=== PATIENT | female | born 1985 | race Two or more races ===

== ENCOUNTER 2018-01-27 05:45 | Inpatient (IN) | payer OTHER, MEDICAID ==
[~2018-01-27] VITALS: Ht 160 cm; Wt 88.1 kg
[2018-01-27 05:55] VITALS: BP 120/69
[2018-01-27] MEDS ORDERED: OXYTOCIN 30U/ 0.9% NaCL 500ML 500 ML IV ONE ×2 (05:55→18:15)
[2018-01-27] MEDS ORDERED: D5%-LACTATED RINGERS 1,000 ML IV SCH (05:55)
[2018-01-27] MEDS ORDERED: LACTATED RINGERS 1,000 ML IV SCH (05:55)
[2018-01-27] MEDS ORDERED: OXYTOCIN 30U/ 0.9% NaCL 500ML 500 ML IV PRN (05:55)
[2018-01-27] MEDS ORDERED: MISOPROSTOL 25 MCG TABLET VG PRN (06:00)
[2018-01-27] MEDS ORDERED: FENTANYL PF 100 MCG/2ML IV PRN (06:00)
[2018-01-27] MEDS ORDERED: CALCIUM CARBONATE 500 MG TAB.CHEW PO PRN (06:00)
[2018-01-27] MEDS ORDERED: ONDANSETRON 2MG/ML, 2ML IVPush PRN (06:00)
[2018-01-27] MEDS ORDERED: TERBUTALINE 1 MG/ML, 1ML IVPush PRN (06:00)
[2018-01-27] MEDS ORDERED: MISOPROSTOL 200 MCG TABLET ONE (06:17)
[2018-01-27] MEDS ORDERED: OXYTOCIN 30U/ 0.9% NaCL 500ML 500 ML ONE ×3 (06:17→18:13)
[2018-01-27] MEDS ORDERED: LIDOCAINE 1%, 50ML ONE (06:17)
[2018-01-27] MEDS ORDERED: NEWBORN KIT ONE (06:18)
[2018-01-27 06:22] LABS: BASOPHILS # (AUTO) 0.03 x10^3/uL (0-0.1); BASOPHILS % (AUTO) 0 % (0-1); EOSINOPHILS # (AUTO) 0.04 x10^3/uL (0-0.4); EOSINOPHILS % (AUTO) 0 % (1-7); LYMPHOCYTES % (AUTO) 28 % (22-44); MD NO; MEAN CORPUSCULAR HEMOGLOBIN 29.3 pg (27.0-34.8); MEAN CORPUSCULAR VOLUME 86.4 fL (80-100); MEAN PLATELET VOLUME 7.3 fL (7.4-10.4); MONOCYTES # (AUTO) 0.79 x10^3/uL (0.2-0.8); MONOCYTES % (AUTO) 7 % (2-9); NEUTROPHILS # (AUTO) 6.95 x10^3/uL (1.8-6.8); NEUTROPHILS % (AUTO) 64 % (42-75); PLATELET COUNT 211 x10^3/uL (130-400); RED BLOOD COUNT 4.13 x10^6/uL (3.82-5.3); RED CELL DISTRIBUTION WIDTH 13.6 % (9.6-15.2)
[2018-01-27] MEDS ORDERED: PLEASE ENTER HEIGHT AND WEIGHT MC SCH (07:30)
[2018-01-27 08:08] VITALS: BP 111/67
[2018-01-27] MEDS ORDERED: FENTANYL/BUPIV./NS/PF 250 ML EPIDCONT SCH ×2 (11:14→11:35)
[2018-01-27] MEDS: LACTATED RINGERS 1,000 ML IVBOLUS PRN ×3 (11:20→18:00)
[2018-01-27] MEDS ORDERED: FENTANYL PF 500 MCG, BUPIVACAINE/PF 0.5%, 30ML 62.5 ML in SODIUM CHLORIDE 0.9% 177.5 ML EPIDCONT SCH (11:30)
[2018-01-27] MEDS ORDERED: FENTANYL PF 100 MCG/2ML ONE ×2 (11:36→13:45)
[2018-01-27] MEDS ORDERED: ONDANSETRON 2MG/ML, 2ML ONE (11:36)
[2018-01-27] MEDS: FENTANYL PF 100 MCG/2ML IVPush PRN ×2 (11:45→13:47)
[2018-01-27] MEDS ORDERED: EPHEDRINE 50 MG/ML, 1ML IVPush PRN (12:00)
[2018-01-27] MEDS ORDERED: NALOXONE 0.4 MG/ML, 1ML IVPush PRN (12:00)
[2018-01-27] MEDS: LACTATED RINGERS 1,000 ML IV SCH ×2 (16:36→19:35)
[2018-01-27] MEDS ORDERED: TRANEXAMIC ACID 100 MG/ML, 10ML IV SCH ×2 (17:00→19:00)
[2018-01-27] MEDS ORDERED: TRANEXAMIC ACID 100 MG/ML, 10ML ONE ×2 (17:30→17:56)
[2018-01-27] MEDS ORDERED: EPHEDRINE 50 MG/ML, 1ML ONE (18:03)
[2018-01-27] MEDS: CEFAZOLIN PMX 2GM/50ML 50 ML IVPB SCH (18:10)
[2018-01-27 18:34] LABS: BASOPHILS # (AUTO) 0.07 x10^3/uL (0-0.1); BASOPHILS % (AUTO) 1 % (0-1); EOSINOPHILS % (AUTO) 0 % (1-7); LYMPHOCYTES # (AUTO) 1.19 x10^3/uL (1-3.4); LYMPHOCYTES % (AUTO) 8 % (22-44); MD NO; MEAN CORPUSCULAR HEMOGLOBIN 30.2 pg (27.0-34.8); MEAN CORPUSCULAR HGB CONC 34.3 g/dL (32.4-35.8); MEAN CORPUSCULAR VOLUME 88.2 fL (80-100); MEAN PLATELET VOLUME 7.2 fL (7.4-10.4); MONOCYTES # (AUTO) 0.91 x10^3/uL (0.2-0.8); MONOCYTES % (AUTO) 6 % (2-9); NEUTROPHILS # (AUTO) 12.13 x10^3/uL (1.8-6.8); NEUTROPHILS % (AUTO) 85 % (42-75); PLATELET COUNT 174 x10^3/uL (130-400); RED CELL DISTRIBUTION WIDTH 13.6 % (9.6-15.2)
[2018-01-27] MEDS ORDERED: METHYLERGONOVINE 0.2 MG/ML IM ONE (18:38)
[2018-01-27] MEDS ORDERED: CARBOPROST TROMETHAMINE 250 MCG/ML, 1ML IM ONE (18:39)
[2018-01-27 18:43] LABS: INTERNATIONAL NORMALIZED RATIO 1.04 (0.93-1.1); PROTHROMBIN TIME 10.7 Seconds (9.6-11.5)
[2018-01-27] MEDS: OXYTOCIN 30U/ 0.9% NaCL 500ML 500 ML IV SCH (18:44)
[2018-01-27] MEDS ORDERED: IBUPROFEN 600 MG TABLET PO PRN (19:00)
[2018-01-27] MEDS ORDERED: MISOPROSTOL 200 MCG TABLET PR PRN (19:00)
[2018-01-27] MEDS ORDERED: METHYLERGONOVINE 0.2 MG/ML IM PRN (19:00)
[2018-01-27] MEDS ORDERED: OXYcodone/APAP 5/325MG TABLET PO PRN (19:00)
[2018-01-27] MEDS ORDERED: CARBOPROST TROMETHAMINE 250 MCG/ML, 1ML IM PRN (19:00)
[2018-01-27] MEDS ORDERED: ONDANSETRON 2MG/ML, 2ML IV PRN (19:00)
[2018-01-27] MEDS ORDERED: CEFAZOLIN 2,000 MG in SODIUM CHLORIDE 0.9% 50 ML IVPB ONE (19:30)
[2018-01-27 19:39] VITALS: BP 102/58
[2018-01-27 20:41] VITALS: BP 103/61
[2018-01-27 22:30] VITALS: BP 90/57
[2018-01-28 00:35] VITALS: BP 97/61
[2018-01-28] MEDS: CEFAZOLIN PMX 2GM/50ML 50 ML IVPB SCH ×2 (03:16→14:35)
[2018-01-28] MEDS: LACTATED RINGERS 1,000 ML IV SCH (03:35)
[2018-01-28 04:10] VITALS: BP 90/58
[2018-01-28] MEDS: OXYcodone/APAP 5/325MG TABLET PO PRN ×3 (04:14→22:04)
[2018-01-28] MEDS: OXYTOCIN 30U/ 0.9% NaCL 500ML 500 ML IV SCH (04:44)
[2018-01-28 05:33] LABS: MEAN CORPUSCULAR HEMOGLOBIN 30.1 pg (27.0-34.8); MEAN CORPUSCULAR HGB CONC 34.6 g/dL (32.4-35.8); MEAN CORPUSCULAR VOLUME 87.1 fL (80-100); MEAN PLATELET VOLUME 7.5 fL (7.4-10.4); PLATELET COUNT 168 x10^3/uL (130-400); RED BLOOD COUNT 2.91 x10^6/uL (3.82-5.3); RED CELL DISTRIBUTION WIDTH 13.5 % (9.6-15.2)
[2018-01-28 06:04] LABS: BASOPHILS # (AUTO) 0.05 x10^3/uL (0-0.1); BASOPHILS % (AUTO) 0 % (0-1); EOSINOPHILS # (AUTO) 0.03 x10^3/uL (0-0.4); EOSINOPHILS % (AUTO) 0 % (1-7); LYMPHOCYTES # (AUTO) 2.27 x10^3/uL (1-3.4); LYMPHOCYTES % (AUTO) 14 % (22-44); MD SCAN; MONOCYTES # (AUTO) 1.27 x10^3/uL (0.2-0.8); MONOCYTES % (AUTO) 8 % (2-9); NEUTROPHILS # (AUTO) 13.24 x10^3/uL (1.8-6.8); NEUTROPHILS % (AUTO) 79 % (42-75)
[2018-01-28 08:51] VITALS: BP 91/61
[2018-01-28 12:00] VITALS: BP 87/57
[2018-01-28 12:17] VITALS: BP 87/57
[2018-01-28] MEDS: PRENATAL VIT/IRON/FA 1 EACH TABLET PO SCH (14:35)
[2018-01-28] MEDS: FERROUS SULFATE 325 MG TABLET PO SCH (17:12)
[2018-01-28 18:55] VITALS: BP 102/65
[2018-01-28] MEDS: DOCUSATE 100 MG CAPSULE PO PRN (22:04)
[2018-01-28] MEDS: CEFAZOLIN 2,000 MG in SODIUM CHLORIDE 0.9% 50 ML IVPB SCH (22:43)
[2018-01-29 00:55] VITALS: BP 98/64
[2018-01-29] MEDS: CEFAZOLIN 2,000 MG in SODIUM CHLORIDE 0.9% 50 ML IVPB SCH (07:30)
[2018-01-29 08:30] VITALS: BP 97/63
[2018-01-29] MEDS: PRENATAL VIT/IRON/FA 1 EACH TABLET PO SCH (09:00)
[2018-01-29] MEDS: FERROUS SULFATE 325 MG TABLET PO SCH (10:52)
[2018-01-29] MEDS: DOCUSATE 100 MG CAPSULE PO PRN (10:52)
[2018-01-29] MEDS: OXYcodone/APAP 5/325MG TABLET PO PRN (10:57)
== END 2018-01-29 11:48 | disposition home or self-care (01) | DRG 775 ==
LOC: LDIP 05:45 → 2NW 22:00
PROVIDERS: ADMIT Obstetrics & Gynecology; ATTEND Obstetrics & Gynecology
PROC: 10E0XZZ Delivery of Products of Conception, External Approach (ICD-10-PCS; principal; 2018-01-27)
PROC: 10907ZC Drainage of Amniotic Fluid, Therapeutic from Products of Conception, Via Natural or Artificial Opening (ICD-10-PCS; 2018-01-27)
PROC: 3E033VJ Introduction of Other Hormone into Peripheral Vein, Percutaneous Approach (ICD-10-PCS; 2018-01-27)
PROC: 3E0R3BZ Introduction of Anesthetic Agent into Spinal Canal, Percutaneous Approach (ICD-10-PCS; 2018-01-27)
PROC: 00HU33Z Insertion of Infusion Device into Spinal Canal, Percutaneous Approach (ICD-10-PCS; 2018-01-27)
DX: O62.2 Other uterine inertia (principal); O69.81X0 Labor and delivery complicated by cord around neck, without compression, not applicable or unspecified; Z37.0 Single live birth; Z3A.39 39 weeks gestation of pregnancy
CPT/HCPCS: 36415; 76815; 85025; 85384; 85610; 85730; 86850; 86900; 86923; J0690; J2405; J3010; J2210; J2590; J7120

== ENCOUNTER → 2018-03-18 | Outpatient (CLI) | payer OTHER, MEDICAID ==
[~2018-03-18] MED LIST: IRON PO
[2018-03-18 08:44] LABS: BASOPHILS # (AUTO) 0.03 x10^3/uL (0-0.1); BASOPHILS % (AUTO) 1 % (0-1); EOSINOPHILS # (AUTO) 0.11 x10^3/uL (0-0.4); EOSINOPHILS % (AUTO) 2 % (1-7); LYMPHOCYTES # (AUTO) 2.63 x10^3/uL (1-3.4); LYMPHOCYTES % (AUTO) 45 % (22-44); MD NO; MEAN CORPUSCULAR HEMOGLOBIN 26.3 pg (27.0-34.8); MEAN CORPUSCULAR HGB CONC 32.7 g/dL (32.4-35.8); MEAN CORPUSCULAR VOLUME 80.2 fL (80-100); MEAN PLATELET VOLUME 7.3 fL (7.4-10.4); MONOCYTES # (AUTO) 0.39 x10^3/uL (0.2-0.8); MONOCYTES % (AUTO) 7 % (2-9); NEUTROPHILS # (AUTO) 2.68 x10^3/uL (1.8-6.8); NEUTROPHILS % (AUTO) 46 % (42-75); PLATELET COUNT 276 x10^3/uL (130-400); RED BLOOD COUNT 4.29 x10^6/uL (3.82-5.3)
== END | disposition home or self-care (01) ==
LOC: STAR 07:57
PROVIDERS: ATTEND Obstetrics & Gynecology
DX: Z30.2 Encounter for sterilization (principal)
CPT/HCPCS: 36415; 84703; 85025

== ENCOUNTER 2018-03-23 06:00 | Day surgery (SDC) | payer OTHER, MEDICAID ==
[~2018-03-23] VITALS: Ht 160 cm; Wt 81.8 kg
[2018-03-23] MEDS ORDERED: LACTATED RINGERS 1,000 ML IV SCH (06:47)
[2018-03-23 06:50] VITALS: BP 109/76
[2018-03-23] MEDS ORDERED: BUPIVACAINE/PF-EPI 0.25% 1:200K ONE (06:51)
[2018-03-23] MEDS ORDERED: MIDAZOLAM 1 MG/ML, 2ML ONE (07:24)
[2018-03-23] MEDS ORDERED: FENTANYL PF 100 MCG/2ML ONE ×3 (07:24→08:17)
[2018-03-23] MEDS ORDERED: PROPOFOL 10 MG/ML, 20ML ONE (07:25)
[2018-03-23] MEDS ORDERED: DEXAMETHASONE 4 MG/ML, 1ML ONE (07:26)
[2018-03-23] MEDS ORDERED: ONDANSETRON 2MG/ML, 2ML ONE (07:26)
[2018-03-23] MEDS ORDERED: ROCURONIUM 10 MG/ML,10ML ONE (07:33)
[2018-03-23] MEDS ORDERED: GLYCOPYRROLATE 0.2MG/1ML, 5ML ONE (07:33)
[2018-03-23] MEDS ORDERED: NEOSTIGMINE 1 MG/ML, 10ML ONE (07:33)
[2018-03-23] MEDS ORDERED: SUCCINYLCHOLINE 20 MG/ML, 10ML ONE (07:33)
[2018-03-23] MEDS ORDERED: KETOROLAC 30 MG/1 ML ONE ×2 (07:33→08:04)
[2018-03-23 07:41] LABS: HCG UR SG 1.015 (1.003-1.030)
[2018-03-23] MEDS ORDERED: FENTANYL PF 100 MCG/2ML IV PRN (08:00)
[2018-03-23] MEDS ORDERED: LABETALOL 5MG/ML, 20ML IV PRN (08:00)
[2018-03-23] MEDS ORDERED: EPHEDRINE 50 MG/ML, 1ML IVPush PRN (08:00)
[2018-03-23] MEDS ORDERED: MEPERIDINE/PF 25MG/0.5ML IVPush PRN (08:00)
[2018-03-23] MEDS ORDERED: PROMETHAZINE 12.5 MG SUPP PR PRN (08:00)
[2018-03-23] MEDS ORDERED: HYDROmorphone 1 MG/ML, 1ML IV PRN (08:00)
[2018-03-23] MEDS ORDERED: hydrALAzine 20 MG/ML, 1ML IV PRN (08:00)
[2018-03-23] MEDS ORDERED: OXYcodone 5 MG/5 ML ORAL.SOL UDC PO PRN (08:00)
[2018-03-23] MEDS ORDERED: MIDAZOLAM 1 MG/ML, 2ML IV PRN (08:00)
[2018-03-23] MEDS ORDERED: ONDANSETRON ODT 8 MG PO PRN (08:00)
[2018-03-23] MEDS ORDERED: PROMETHAZINE 25 MG/ML, 1ML IV PRN (08:00)
[2018-03-23] MEDS ORDERED: ALBUTEROL SULFATE 2.5 MG/3 ML NPPB PRN (08:00)
[2018-03-23] MEDS ORDERED: LORazepam 2 MG/ML, 1ML IVPush PRN (08:00)
[2018-03-23] MEDS ORDERED: MORPHINE SULFATE 4 MG/ML, 1ML IVPush PRN (08:00)
[2018-03-23] MEDS ORDERED: ONDANSETRON 2MG/ML, 2ML IV PRN (08:00)
[2018-03-23] MEDS ORDERED: HALOPERIDOL 5 MG/ML IV PRN (08:00)
[2018-03-23] MEDS ORDERED: OXYcodone 5 MG/5 ML ORAL.SOL UDC ONE (08:18)
== END 2018-03-23 12:01 | disposition home or self-care (01) ==
LOC: OUT 06:00
PROVIDERS: ATTEND Obstetrics & Gynecology
DX: Z30.2 Encounter for sterilization (principal)
CPT/HCPCS: 36415; 58670; 81025; 86850; 86900; 88302; J0330; J1100; J1885; J2250; J2405; J2704; J2710; J3010; J3490; J7120